=== PATIENT | male | born 2000 | race Caucasian/White ===

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

== ENCOUNTER 2022-12-07 17:59 | Emergency (ER) | payer BC, SELFPAY ==
[2022-12-07 18:45] VITALS: BP 156/93; PULSE 101; RESP 20; TEMP 37.6; O2SAT 98; BMI 30.5
--- NOTE | 2022-12-07 18:49 | EXP.UTC ---
Discharge Plan Disposition Patient Disposition: Home, Self-Care Condition: Good Prescriptions Prescriptions: New [id number]-qynqnhfmf-BP [Bromfed DM] 2-30-10 mg/5 mL Syrup 5 ml PO Q6H PRN (Reason: Cough) Qty: 240 0RF ondansetron 4 mg Tablet,Disintegrating 4 mg PO Q8H PRN (Reason: Nausea) Qty: 12 0RF No Action meloxicam 7.5 mg tablet 7.5 mg PO DAILY Label Comments: MD took him off of this on Tuesday 11/14 dexmethylphenidate 15 mg capsule,ER biphasic 50-50 15 mg PO DAILY venlafaxine 75 MG tablet extended release 24hr 75 mg PO DAILY Referrals Follow up/Referrals: El Hartley MD [Primary Care Provider] - See instructions Activity Restrictions/Add. Instructions Additional Instructions/Restrictions: Drink plenty of fluids. Take tylenol or ibuprofen for pain or fever. Follow up with your regular doctor. GO TO THE ER FOR ANY WORSENING SYMPTOMS Clinical Impressions Clinical Impression: Acute viral syndrome Stand Alone Forms Stand Alone Forms: Work/School Release Instructions Patient Instructions: DI for Viral Syndrome Discharge ED Provider: Cuauhtemoc Carver [facility] General Stated complaint: fever Time Seen by Provider: 12/07/22 18:48 History of Present Illness Provider Complaint: He states that for the past 1 day he has had fever, chills, body aches. He has a dry cough also. Related Data Home Medications Medication Instructions Recorded Confirmed meloxicam 7.5 mg tablet 7.5 mg PO DAILY Pain 12/05/19 11/18/21 venlafaxine 75 mg tablet,extended 75 mg PO DAILY Depression 11/18/21 11/18/21 release 24 hr dexmethylphenidate 15 mg 15 mg PO DAILY adhd 12/07/22 12/07/22 capsule,extended release [id number] Previous Rx's Medication Instructions Recorded xjwktrilffyhzru-bwfmcheexlciycr-RB 5 ml PO Q6H PRN Cough #240 mL 12/07/22 2 mg-30 mg-10 mg/5 mL oral syrup (Bromfed DM) ondansetron 4 mg disintegrating 4 mg PO Q8H PRN Nausea #12 tabs 12/07/22 tablet Allergies Allergy/AdvReac Type Severity Reaction Status Date / Time No Known Allergies Allergy Verified 12/05/19 16:52 [facility] Disclaimer: The information contained in this section may have been updated after the patient was seen, as this information can be updated by other users. Social History Smoking Status: Unknown if ever smoked second hand exposure: No alcohol intake: never current occupational status: unemployed and student Travel in the last 8 weeks: None household members: family housing: house ROS Obtained: Yes All systems reviewed & no additional complaints except as documented Constitutional Constitutional: Reports chills and Reports fever(s) Eyes Eyes: Denies eye discharge ENT Ears, Nose, Mouth, and Throat: Reports as per HPI Cardiovascular Cardiovascular: Denies chest pain Respiratory Respiratory: Denies chest congestion and Reports cough Gastrointestinal Gastrointestingal: Reports nausea; Denies abdominal pain, constipation, cramping, diarrhea or vomiting Musculoskeletal Musculoskeletal: Denies arthralgias Integumentary/Breasts Skin/Breast: Denies rash Neurologic Neurologic: Denies paresthesias Physical Exam General General appearance: alert and in no apparent distress Head Head exam: atraumatic, normocephalic and normal inspection Eye Eye exam: Present normal appearance, PERRL and EOMI ENT ENT exam: Present mucous membranes moist and normal external ear exam Expanded ENT Exam TM/Canal exam: Bilateral TM: erythema and bulging Nose exam: Absent sinus tenderness Mouth exam: Present normal external inspection; Absent drooling Teeth exam: Present normal inspection Throat exam: Present tonsillar erythema, tonsillomegaly and tonsillar exudate Neck Neck exam: Present normal inspection, full ROM and trachea midline; Absent tenderness, meningismus or lymphadenopathy Chest Chest
[2022-12-07 19:32] VITALS: BP 156/93; PULSE 101; RESP 20; TEMP 37.6; O2SAT 98
[2022-12-07 19:33] LABS: UTC Influenza A Antigen Negative (Negative); UTC Influenza B Antigen Negative (Negative)
== END 2022-12-07 19:37 | disposition home or self-care (01) ==
PROVIDERS: Emergency Provider Nurse Practitioner Family; PCP Family Medicine
DX: U07.1 COVID-19 (principal); R05.1 Acute cough; R11.0 Nausea; R50.9 Fever, unspecified
CPT/HCPCS: 87804; 99212; 99214; C9803; G0463; U0003; U0005